=== PATIENT | male | born 1965 | race African-American/Black ===

== ENCOUNTER 2020-03-02 13:22 | Emergency (ER) | payer OTHER ==
[~2020-03-02] VITALS: Ht 180.3 cm; Wt 152.4 kg
[2020-03-02] MEDS ORDERED: LISINOPRIL10 M1 PO (13:44)
[2020-03-02] MEDS ORDERED: SUBOXONE 8 MG-1 EACH SL (13:44)
[2020-03-02] MEDS ORDERED: HYDROXYZINE PAM50 MG PO (13:44)
[2020-03-02] MEDS ORDERED: RISPERIDONE4 MG PO (13:44)
[2020-03-02 14:04] LABS: BASO % 0.5 % (0.0-1.0); EOS # 0.1 10*3/uL (0.0-0.4); HEMATOCRIT 45.9 % (42.0-52.0); LYMPH # 2.2 10*3/uL (1.3-4.4); LYMPH % 27.2 % (27.0-41.0); MEAN CELL VOLUME 83.8 fl (80.0-94.0); MEAN CORPUSCULAR HGB 27.6 pg (27.0-31.0); MEAN CORPUSCULAR HGB CONC 32.9 g/dl (33.0-37.0); MONO # 0.5 10*3/uL (0.1-1.0); MONO % 5.6 % (3.0-9.0); NEUT # 5.3 10*3/uL (2.3-7.9); NEUT % 65.3 % (47.0-73.0); PLATELET COUNT AUTOMATED 254 10*3/uL (130-400); RED BLOOD COUNT 5.48 10*6/uL (4.50-5.90); RED CELL DISTRI WIDTH 13.9 % (0-14.5); WHITE BLOOD COUNT 8.2 10*3/uL (4.8-10.8)
[2020-03-02 14:21] LABS: ALBUMIN 4.1 gm/dl (3.1-4.5); ALKALINE PHOSPHATASE 112 U/L (45-117); BUN 10 mg/dl (7-24); CHLORIDE 102 mmol/L (98-107); CREATININE 1.04 mg/dL (0.70-1.30); POTASSIUM 4.1 mmol/L (3.5-5.1); SGOT/AST 31 IU/L (3-35); SGPT/ALT 40 U/L (12-78); SODIUM 137 mmol/L (136-145); TOTAL PROTEIN 8.4 gm/dL (6.4-8.2)
[2020-03-02 14:26] LABS: ACETAMINOPHEN (TYLENOL) < 3.0 ug/ml (10-30); ETHYL ALCOHOL < 3.0 mg/dl (<3); TROPONIN I < 0.015 ng/ml (<0.045)
== END 2020-03-02 15:15 | disposition left against medical advice (07) ==
LOC: ED 13:22
PROVIDERS: Physician Assistant
DX: F22 Delusional disorders (principal); F17.200 Nicotine dependence, unspecified, uncomplicated; Z53.29 Procedure and treatment not carried out because of patient's decision for other reasons; Z79.899 Other long term (current) drug therapy

== ENCOUNTER 2020-03-02 16:24 | Emergency (ER) | payer OTHER ==
[~2020-03-02] VITALS: Ht 181.6 cm; Wt 154.2 kg
[~2020-03-02 16:24] MED LIST: HYDROXYZINE PAM50 MG PO; LISINOPRIL10 M1 PO; RISPERIDONE4 MG PO; SUBOXONE 8 MG-1 EACH SL
[2020-03-02 19:19] LABS: URINE AMPHETAMINES < 1000 (1000ng/ml); URINE BARBITURATES < 200 (200ng/ml); URINE BENZODIAZEPINES < 200 (200ng/ml); URINE CANNABINOIDS (THC) < 50 (50ng/ml); URINE COCAINE < 300 (300ng/ml); URINE METHADONE < 300 (300ng/ml); URINE OPIATES < 300 (300ng/ml)
[2020-03-02 19:21] LABS: URINE PHENCYCLIDINE < 25 (25ng/ml)
== END 2020-03-03 00:02 | disposition home health service (06) ==
LOC: ED 16:24
PROVIDERS: Emergency Medicine
DX: F31.9 Bipolar disorder, unspecified (principal); F17.200 Nicotine dependence, unspecified, uncomplicated; Z79.899 Other long term (current) drug therapy